=== PATIENT | female | born 1950 | race Caucasian/White ===

== ENCOUNTER 2023-09-18 11:33 | Outpatient (RCR) | payer MEDICARE, OTHER, SELFPAY ==
[2023-09-18 11:48] VITALS: BP 115/77
[2023-09-18] MEDS: NSS 250 IV (12:01)
[2023-09-18] MEDS: TYSABRI 115 MG IV (12:01)
[2023-09-18 14:00] VITALS: BP 115/56
== END 2023-09-19 08:25 | disposition home or self-care (01) ==
LOC: OID 11:33
PROVIDERS: ATTENDING PHYSICIAN Specialist; FAMILY PHYSICIAN Internal Medicine
DX: G35 Multiple sclerosis (principal)
CPT/HCPCS: 96361; 96365; J2323

== ENCOUNTER 2023-10-30 11:12 | Outpatient (RCR) | payer MEDICARE, OTHER, SELFPAY ==
[2023-10-30 11:25] VITALS: BP 108/75
--- NOTE | 2023-10-30 12:04 | PTCARENOTE ---
1150: When asking assessment questions prior to infusion today, pt stating she has been having double vision for approximately 1 month. She states that it is constant as well. Dr. Beltrán's office notified and awaiting a call back from . Updated
pt and caregiver, will monitor.
[2023-10-30 12:20] VITALS: BP 106/60
[2023-10-30] MEDS: NSS 250 IV (12:21)
[2023-10-30] MEDS: TYSABRI 115 MG IV (12:21)
--- NOTE | 2023-10-30 12:25 | PTCARENOTE ---
Call back from office received, ok to infuse Tysabri.
[2023-10-30 12:30] VITALS: BP 102/74
[2023-10-30 13:00] VITALS: BP 89/58
[2023-10-30 13:30] VITALS: BP 96/69
[2023-10-30 14:00] VITALS: BP 93/73
== END 2023-10-30 14:40 | disposition home or self-care (01) ==
LOC: OID 11:12
PROVIDERS: ATTENDING PHYSICIAN Specialist; FAMILY PHYSICIAN Internal Medicine
DX: G35 Multiple sclerosis (principal)
CPT/HCPCS: 96365; J2323

== ENCOUNTER 2024-02-05 11:23 | Outpatient (RCR) | payer MEDICARE, OTHER, SELFPAY ==
[2024-02-05 11:54] VITALS: BP 103/68
[2024-02-05] MEDS: NSS 250 IV (12:03)
[2024-02-05] MEDS: TYSABRI 115 MG IV (12:04)
[2024-02-05 13:10] VITALS: BP 123/73
== END 2024-03-04 23:59 | disposition home or self-care (01) ==
LOC: OID 11:23
PROVIDERS: ATTENDING PHYSICIAN Specialist; FAMILY PHYSICIAN Internal Medicine
DX: G35 Multiple sclerosis (principal)
CPT/HCPCS: 96361; 96365; J2323

== ENCOUNTER 2024-04-01 11:24 | Outpatient (RCR) | payer MEDICARE, OTHER, SELFPAY ==
[2024-04-01 11:30] VITALS: BP 111/65
[2024-04-01] MEDS: TYSABRI 115 MG IV (11:49)
[2024-04-01] MEDS: NSS 250 IV (11:49)
[2024-04-01 12:00] VITALS: BP 98/71
[2024-04-01 13:00] VITALS: BP 90/64
[2024-04-01 13:30] VITALS: BP 101/71
[2024-04-01 14:00] VITALS: BP 105/72
== END 2024-04-01 15:30 | disposition home or self-care (01) ==
LOC: OID 11:24
PROVIDERS: ATTENDING PHYSICIAN Specialist; FAMILY PHYSICIAN Internal Medicine
DX: G35 Multiple sclerosis (principal)
CPT/HCPCS: 96365; J2323

== ENCOUNTER 2024-04-29 11:10 | Outpatient (RCR) | payer MEDICARE, OTHER, SELFPAY ==
[2024-04-29 11:54] VITALS: BP 94/60
[2024-04-29] MEDS: TYSABRI 115 MG IV (11:55)
[2024-04-29] MEDS: NSS 250 IV (11:55)
== END 2024-04-30 09:06 | disposition home or self-care (01) ==
LOC: OID 11:10
PROVIDERS: ATTENDING PHYSICIAN Specialist; FAMILY PHYSICIAN Internal Medicine
DX: G35 Multiple sclerosis (principal)
CPT/HCPCS: 96361; 96365; J2323

== ENCOUNTER 2024-05-27 11:13 | Outpatient (RCR) | payer MEDICARE, OTHER, SELFPAY ==
[2024-05-27 11:30] VITALS: BP 102/69
[2024-05-27] MEDS: TYSABRI 115 MG IV (11:49)
[2024-05-27] MEDS: NSS 250 IV (11:49)
[2024-05-27 12:00] VITALS: BP 83/61
[2024-05-27 12:30] VITALS: BP 97/72
[2024-05-27 13:00] VITALS: BP 86/60
[2024-05-27 13:30] VITALS: BP 90/60
== END 2024-05-28 08:39 | disposition home or self-care (01) ==
LOC: OID 11:13
PROVIDERS: ATTENDING PHYSICIAN Specialist; FAMILY PHYSICIAN Internal Medicine
DX: G35 Multiple sclerosis (principal)
CPT/HCPCS: 96365; J2323

== ENCOUNTER 2024-06-24 11:11 | Outpatient (RCR) | payer MEDICARE, OTHER, SELFPAY ==
[2024-06-24 11:40] VITALS: BP 90/58
[2024-06-24] MEDS: NSS 250 IV (11:53)
[2024-06-24] MEDS: TYSABRI 115 MG IV (11:55)
[2024-06-24 13:52] VITALS: BP 129/88
== END 2024-06-25 10:27 | disposition home or self-care (01) ==
LOC: OID 11:11
PROVIDERS: ATTENDING PHYSICIAN Specialist; FAMILY PHYSICIAN Internal Medicine
DX: G35 Multiple sclerosis (principal)
CPT/HCPCS: 96360; 96361; 96365; J2323

== ENCOUNTER 2024-07-22 11:07 | Outpatient (RCR) | payer MEDICARE, OTHER, SELFPAY ==
[2024-07-22] MEDS: TYSABRI 115 MG IV (11:41)
[2024-07-22] MEDS: NSS 250 IV (11:41)
[2024-07-22 11:43] VITALS: BP 132/80
[2024-07-22 13:45] VITALS: BP 108/61
== END 2024-07-23 11:24 | disposition home or self-care (01) ==
LOC: OID 11:07
PROVIDERS: ATTENDING PHYSICIAN Specialist; FAMILY PHYSICIAN Internal Medicine
DX: G35 Multiple sclerosis (principal)
CPT/HCPCS: 96361; 96365; J2323

== ENCOUNTER 2024-08-21 11:14 | Outpatient (RCR) | payer OTHER, MEDICARE, SELFPAY ==
[2024-08-21 11:47] VITALS: BP 90/61
[2024-08-21] MEDS: NSS 250 IV (11:52)
[2024-08-21] MEDS: TYSABRI 115 MG IV (11:53)
== END 2024-08-24 10:15 | disposition home or self-care (01) ==
LOC: OID 11:14
PROVIDERS: ATTENDING PHYSICIAN Specialist; FAMILY PHYSICIAN Internal Medicine
DX: G35 Multiple sclerosis (principal)
CPT/HCPCS: 96361; 96365; J2323

== ENCOUNTER 2024-09-23 11:11 | Outpatient (RCR) | payer OTHER, MEDICARE, SELFPAY ==
[2024-09-23 11:31] VITALS: BP 107/63
[2024-09-23] MEDS: TYSABRI 115 MG IV (11:46)
[2024-09-23] MEDS: NSS 250 IV (11:47)
[2024-09-23 13:49] VITALS: BP 111/65
== END 2024-09-24 09:06 | disposition home or self-care (01) ==
LOC: OID 11:11
PROVIDERS: ATTENDING PHYSICIAN Specialist; FAMILY PHYSICIAN Internal Medicine
DX: G35 Multiple sclerosis (principal)
CPT/HCPCS: 96361; 96365; J2323

== ENCOUNTER 2024-10-21 11:24 | Outpatient (RCR) | payer OTHER, MEDICARE, SELFPAY ==
[2024-10-21] MEDS: NSS 250 IV (12:03)
[2024-10-21] MEDS: TYSABRI 115 MG IV (12:03)
[2024-10-21 12:07] VITALS: BP 121/55
== END 2024-10-22 11:41 | disposition home or self-care (01) ==
LOC: OID 11:24
PROVIDERS: ATTENDING PHYSICIAN Specialist; FAMILY PHYSICIAN Internal Medicine
DX: G35 Multiple sclerosis (principal)
CPT/HCPCS: 96361; 96365; J2323

== ENCOUNTER 2024-11-25 11:01 | Outpatient (RCR) | payer MEDICARE, OTHER, SELFPAY ==
[2024-11-25 11:30] VITALS: BP 97/62
[2024-11-25] MEDS: NSS 250 IV (11:39)
[2024-11-25] MEDS: TYSABRI 115 MG IV (11:39)
[2024-11-25 13:40] VITALS: BP 93/50
== END 2024-11-26 08:53 | disposition home or self-care (01) ==
LOC: OID 11:01
PROVIDERS: ATTENDING PHYSICIAN Specialist; FAMILY PHYSICIAN Internal Medicine
DX: G35 Multiple sclerosis (principal)
CPT/HCPCS: 96361; 96365; J2323

== ENCOUNTER 2024-12-23 11:09 | Outpatient (RCR) | payer MEDICARE, OTHER, SELFPAY ==
[2024-12-23] MEDS: NSS 250 IV (11:55)
[2024-12-23] MEDS: TYSABRI 115 MG IV (11:55)
[2024-12-23 12:15] VITALS: BP 94/62
[2024-12-23 14:21] VITALS: BP 93/61
== END 2024-12-24 13:06 | disposition home or self-care (01) ==
LOC: OID 11:09
PROVIDERS: ATTENDING PHYSICIAN Specialist; FAMILY PHYSICIAN Internal Medicine
DX: G35 Multiple sclerosis (principal)
CPT/HCPCS: 96361; 96365; J2323

== ENCOUNTER 2025-01-20 11:15 | Outpatient (RCR) | payer MEDICARE, OTHER, SELFPAY ==
[2025-01-20] MEDS: TYSABRI 115 MG IV (11:43)
[2025-01-20] MEDS: NSS 250 IV (11:44)
[2025-01-20 11:50] VITALS: BP 87/57
== END 2025-01-20 15:40 | disposition home or self-care (01) ==
LOC: OID 11:15
PROVIDERS: ATTENDING PHYSICIAN Specialist; FAMILY PHYSICIAN Internal Medicine
DX: G35 Multiple sclerosis (principal)
CPT/HCPCS: 96365; 96366; J2323

== ENCOUNTER 2025-02-17 11:09 | Outpatient (RCR) | payer MEDICARE, OTHER, SELFPAY ==
[2025-02-17] MEDS: TYSABRI 115 MG IV (11:45)
[2025-02-17] MEDS: NSS 250 IV (11:46)
[2025-02-17 11:59] VITALS: BP 93/58
== END 2025-02-18 09:21 | disposition home or self-care (01) ==
LOC: OID 11:09
PROVIDERS: ATTENDING PHYSICIAN Specialist; FAMILY PHYSICIAN Internal Medicine
DX: G35 Multiple sclerosis (principal)
CPT/HCPCS: 96361; 96365; J2323

== ENCOUNTER 2025-03-17 11:25 | Outpatient (RCR) | payer MEDICARE, OTHER, SELFPAY ==
[2025-03-17 11:40] VITALS: BP 94/45
[2025-03-17] MEDS: TYSABRI 115 MG IV (12:12)
[2025-03-17] MEDS: NSS 250 IV (12:12)
== END 2025-03-18 10:07 | disposition home or self-care (01) ==
LOC: OID 11:25
PROVIDERS: ATTENDING PHYSICIAN Specialist; FAMILY PHYSICIAN Internal Medicine
DX: G35 Multiple sclerosis (principal)
CPT/HCPCS: 96361; 96365; J2323

== ENCOUNTER 2025-04-14 11:07 | Outpatient (RCR) | payer MEDICARE, OTHER, SELFPAY ==
[2025-04-14 11:45] VITALS: BP 102/60
[2025-04-14] MEDS: NSS 250 IV (12:02)
[2025-04-14] MEDS: TYSABRI 115 MG IV (12:02)
== END 2025-05-04 23:59 | disposition home or self-care (01) ==
LOC: OID 11:07
PROVIDERS: ATTENDING PHYSICIAN Specialist; FAMILY PHYSICIAN Internal Medicine
DX: G35 Multiple sclerosis (principal)
CPT/HCPCS: 96365; J2323